=== PATIENT | female | born 1990 | race African-American/Black ===

== ENCOUNTER 2017-12-11 17:26 | Emergency (ER) | payer BC ==
[~2017-12-11] VITALS: Ht 167.6 cm; Wt 59.0 kg
[2017-12-11 17:34] VITALS: Ht 167.6 cm; Wt 59.0 kg
[2017-12-11 19:37] VITALS: BP 106/64
== END 2017-12-11 19:37 | disposition home or self-care (01) ==
LOC: ED 17:26
DX: R04.0 Epistaxis (principal)